=== PATIENT | female | born 1960 | race Two or more races ===

== ENCOUNTER 2016-10-01 09:45 | Emergency (ER) | payer BC ==
--- NOTE | 2016-10-01 10:20 | EDPHY ---
H & P Stated Complaint: Lightheaded and fatigue x2 mo.'s, rt calf "achey" Time Seen by Provider: 10/01/16 10:00 HPI/ROS: Chief Complaint: Fatigue HPI: 48-year-old woman who is been having increasing fatigue for the last 2 months. Patient states that she is sleeping well overnight and then during the course today's feeling very tired again. States it feels similar to prior to her diagnosis of hypothyroidism. She did call her auto rental clerk who told her to follow up with primary care physician. She called her primary care physician , Dr. han and was instructed to come to the emergency department for further evaluation. She has been exercising walking daily. She has not had any chest pain or shortness of breath. No nausea or vomiting. No fevers or chills. No urinary frequency urgency. No lightheadedness. She has lost about 50 lb over the course of the last year intentionally and as a result has been taken off of metformin. No increased thirst or urination. No heat or cold intolerance. ROS: 10 point Review of Systems is negative except as noted in the HPI. PMH: Hypothyroidism, type 2 diabetes, hypertension, hyperlipidemia, asthma, sleep apnea Medications: Synthroid, statin, singular, losartan Allergies: No known drug allergies Social History: No smoking, occasional alcohol, no recreational drug use Family History: non-contributory Physical Exam: Gen: Awake, Alert, No Distress HEENT: Nose: no rhinorrhea Eyes: PERRLA, EOMI Mouth: Moist mucosa Neck: Supple, no JVD Chest: nontender, lungs clear to auscultation Heart: S1, S2 normal, no murmur Abd: Soft, non-tender, no guarding Back: no CVA tenderness, no midline tenderness Ext: no edema, non-tender Skin: no rash Neuro: CN II-XII intact, Sensation grossly intact, Strength 5/5 in bilateral upper and lower extremities - Medical/Surgical History Hx Asthma: Yes Hx Chronic Respiratory Disease: No Hx Diabetes: Yes Hx Cardiac Disease: No Hx Renal Disease: No Hx Cirrhosis: No Hx Alcoholism: No Hx HIV/AIDS: No Hx Splenectomy or Spleen Trauma: No Other PMH: Med hx-thyroid,asthma-exercise induced,sleep apnea,type 2 diabetes, cholesterol,endometriosis,IBS. Surg-2 c-sect,laporoscopy - Social History Smoking Status: Never smoked Constitutional: Initial Vital Signs Temperature (C) 36.8 C 10/01/16 09:53 Heart Rate 95 10/01/16 09:53 Respiratory Rate 16 10/01/16 09:53 Blood Pressure 154/99 H 10/01/16 09:53 O2 Sat (%) 97 10/01/16 09:53 O2 Delivery Mode Room Air Allergies/Adverse Reactions: Penicillins Allergy (Verified 10/01/16 09:49) Home Medications: Medication Instructions Recorded Atorvastatin Calcium 10/01/16 Cinnamon 10/01/16 Evening [place] 10/01/16 Fish Oil 10/01/16 Flonase Nasal [place] 10/01/16 Levothyroxine 10/01/16 Losartan Potassium 10/01/16 Magnesium 10/01/16 Nitrofurantoin Monohyd/M-Cryst 100 mg PO BID #10 capsule 10/01/16 [Macrobid 100 mg Capsule] Singulair 10/01/16 VITAMIN D 10/01/16 Medical Decision Making - Diagnostics EKG Interpretation: ECG time 10:30 a.m. sinus rhythm with a rate of 94, normal axis, normal intervals, no acute ST or T-wave changes. Impression normal ECG ED Course/Re-evaluation: Chemistry is largely normal stool waiting TSH. CBC is normal. ECG is negative. Urinalysis is equivocal for UTI but she certainly has some back to urea and leuk [place] but no significant white cells. Given her symptomatology and her bacteriuria will treat her with antibiotics. - Data Points Laboratory Results: Laboratory Results 10/01/16 11:00 10/01/16 11:00 10/01/16 10/01/16 10/01/16 11:00 11:00 10:25 WBC 7.27 10^3/uL 10^3/uL (3.80-9.50) RBC 5.19 10^6/uL 10^6/uL (4.18-5.33) Hgb 15.2 g/dL g/dL (12.6-16.3) Hct 43.5 % % (38.0-47.0) MCV 83.8 fL fL (81.5-99.8) MCH 29.3 pg pg (27.9-34.1) MCHC 34.9 g/dL g/dL (32.4-36.7) RDW 12.8 % % (11.5-15.2) Plt Count 300 10^3/uL 10^3/uL (150-400) MPV 9.3 fL fL (8.7-11.7) Neut % (Auto) 57.9 % % (39.3-74.2) Lymph % (Auto) 32.2 % % (15.0-45.0) [place] % (Auto) 5.9 % % (4.5-13.0) Eos % (Auto) 2.9 % % (0.6-7.6) Baso % (Auto) 0.8 % % (0.3-1.7) Nucleat RBC Rel Count 0.0 % % (0.0-0.2) Absolute Neuts (auto) 4.21 10^3/uL 10^3/uL (1.70-6.50) Absolute Lymphs (auto) 2.34 10^3/uL 10^3/uL (1.00-3.00) Absolute Monos (auto) 0.43 10^3/uL 10^3/uL (0.30-0.80) Absolute Eos (auto) 0.21 10^3/uL 10^3/uL (0.03-0.40) Absolute Basos (auto) 0.06 10^3/uL 10^3/uL (0.02-0.10) Absolute Nucleated RBC 0.00 10^3/uL 10^3/uL (0-0.01) Immature Gran % 0.3 % % (0.0-1.1) Immature Gran # 0.02 10^3/uL 10^3/uL (0.00-0.10) Sodium 140 mEq/L mEq/L (134-144) Potassium 4.1 mEq/L mEq/L (3.5-5.2) Chloride 103 mEq/L mEq/L (97-110) Carbon Dioxide 22 mEq/l mEq/l (22-31) Anion Gap 15 mEq/L mEq/L (8-16) BUN 9 mg/dL mg/dL (7-23) Creatinine 0.6 mg/dL mg/dL (0.6-1.0) Estimated GFR > 60 Glucose 149 mg/dL H mg/dL (70-100) Calcium 9.5 mg/dL mg/dL (8.5-10.4) Total Bilirubin 0.9 mg/dL mg/dL (0.1-1.4) Conjugated Bilirubin 0.3 mg/dL mg/dL (0.0-0.5) Unconjugated Bilirubin 0.6 mg/dL mg/dL (0.0-1.1) AST 23 IU/L IU/L (14-46) ALT 21 IU/L IU/L (9-52) Alkaline Phosphatase 77 IU/L IU/L (38-126) Total Protein 7.8 g/dL g/dL (6.3-8.2) Albumin 4.2 g/dL g/dL (3.5-5.0) Lipase 131.0 IU/L IU/L (23-300) TSH Pending Free T4 Pending Thyroxine (T4) Pending Urine Color YELLOW Urine Appearance CLEAR Urine pH 7.0 (5.0-7.5) Ur Specific [place] 1.010 (1.002-1.030) Urine Protein NEGATIVE (NEGATIVE) Urine Ketones 1+ H (NEGATIVE) Urine Blood NEGATIVE (NEGATIVE) Urine Nitrate NEGATIVE (NEGATIVE) Urine Bilirubin NEGATIVE (NEGATIVE) Urine Urobilinogen 0.2 EU EU (0.2-1.0) Ur Leukocyte Esterase 1+ H (NEGATIVE) Urine RBC 0-1 /hpf /hpf (0-3) Urine WBC 1-3 /hpf /hpf (0-3) Ur Epithelial Cells TRACE /lpf /lpf (NONE-1+) Urine Bacteria 2+ /hpf H /hpf (NONE SEEN) Urine Glucose NEGATIVE (NEGATIVE) Departure - Departure Disposition: Home, Routine, Self-Care Clinical Impression: UTI (urinary tract infection) Condition: Good Instructions: Urinary Tract Infection in Women (ED) Additional Instructions: Please take her full course of antibiotics. Follow up with your primary care physician in 3 for 4 days. Referrals: Annabella Montes De Oca DO [Primary Care Provider] - As per Instructions Prescriptions: Nitrofurantoin Monohyd/M-Cryst [Macrobid 100 mg Capsule] 100 mg PO BID #10 capsule
--- NOTE | 2016-10-01 10:32 | CPEKG ---
Heart Rate: 94 RR Interval: 638 P-R Interval: 148 QRSD Interval: 86 QT Interval: 376 QTC Interval: 471 P [place]: 32 QRS [place]: 28 T Wave [place]: -1 EKG Severity - BORDERLINE ECG - EKG Impression: SINUS RHYTHM EKG Impression: BORDERLINE T ABNORMALITIES, ANT-LAT LEADS Electronically Signed By: Maximo Simpson 02-Oct-2016 08:03:36
[2016-10-01 10:34] LABS: COLOR YELLOW; LEUKOCYTE ESTERASE,URINE 1+ (NEGATIVE); NITRITE,URINE NEGATIVE (NEGATIVE)
[2016-10-01 10:48] LABS: RBC,URINE 0-1 /hpf (0-3)
[2016-10-01 10:49] LABS: BACTERIA 2+ /hpf (NONE SEEN)
[2016-10-01 11:09] LABS: % IMMATURE GRANULYOCYTES 0.3 % (0.0-1.1); ABSOLUTE IMMATURE GRANULOCYTES 0.02 10^3/uL (0.00-0.10); ADD DIFF? NO; ADD MORPH? NO; ADD SCAN? NO; ATYPICAL LYMPHOCYTE FLAG 10 (0-99); FRAGMENT RBC FLAG 0 (0-99); HEMATOCRIT 43.5 % (38.0-47.0); HEMOGLOBIN 15.2 g/dL (12.6-16.3); LEFT SHIFT FLG 0 (0-99); LIPEMIA HEMOLYSIS FLAG 90 (0-99); MEAN CELL HEMOGLOBIN 29.3 pg (27.9-34.1); MEAN CELL HEMOGLOBIN CONCENTR. 34.9 g/dL (32.4-36.7); MEAN CELL VOLUME 83.8 fL (81.5-99.8); MEAN PLATELET VOLUME 9.3 fL (8.7-11.7); PLATELET CLUMPS FLAG 10 (0-99); PLATELET COUNT 300 10^3/uL (150-400); RED BLOOD CELL COUNT 5.19 10^6/uL (4.18-5.33); RED CELL DISTRIBUTION WIDTH 12.8 % (11.5-15.2)
[2016-10-01 11:23] LABS: ALANINE AMINOTRANSFERASE 21 IU/L (9-52); ALBUMIN 4.2 g/dL (3.5-5.0); ALKALINE PHOSPHATASE 77 IU/L (38-126); ANION GAP 15 mEq/L (8-16); ASPARTATE AMINOTRANSFERASE 23 IU/L (14-46); BILIRUBIN,TOTAL 0.9 mg/dL (0.1-1.4); BILIRUBIN-CONJUGATED 0.3 mg/dL (0.0-0.5); BILIRUBIN-UNCONJUGATED 0.6 mg/dL (0.0-1.1); CALCIUM 9.5 mg/dL (8.5-10.4); CARBON DIOXIDE 22 mEq/l (22-31); CHLORIDE 103 mEq/L (97-110); CREATININE 0.6 mg/dL (0.6-1.0); GLOMERULAR FILTRATION RATE > 60; GLUCOSE 149 mg/dL (70-100); POTASSIUM 4.1 mEq/L (3.5-5.2); SODIUM 140 mEq/L (134-144); TOTAL PROTEIN 7.8 g/dL (6.3-8.2)
[2016-10-01 12:31] VITALS: BP 147/75; RESP 18
[2016-10-01 12:32] VITALS: PULSE 61; TEMP 98; O2SAT 95
--- NOTE | 2016-10-05 13:21 | CPEKG ---
Heart Rate: 90 RR Interval: 667 P-R Interval: 152 QRSD Interval: 88 QT Interval: 380 QTC Interval: 465 P [place]: 34 QRS [place]: 25 T Wave [place]: 22 EKG Severity - ABNORMAL ECG - EKG Impression: SINUS RHYTHM EKG Impression: MULTIPLE VENTRICULAR PREMATURE COMPLEXES EKG Impression: BORDERLINE T WAVE ABNORMALITIES Electronically Signed By: Ernie Kay 08-Oct-2016 08:59:37
== END 2016-10-01 12:35 | disposition home or self-care (01) ==
LOC: CED 09:45
DX: N39.0 Urinary tract infection, site not specified (principal); B96.89 Other specified bacterial agents as the cause of diseases classified elsewhere; E11.9 Type 2 diabetes mellitus without complications; I10 Essential (primary) hypertension; J45.909 Unspecified asthma, uncomplicated
CPT/HCPCS: 80048-PO; 80076-PO; 81003-PO; 81015-PO; 83690-PO; 84439-PO; 84443-PO; 85025-PO

== ENCOUNTER → 2016-12-31 | Outpatient (CLI) | payer BC | LOC: CIMAGING 07:59 | PROVIDERS: ATTEND Family Medicine | DX: Z12.31 Encounter for screening mammogram for malignant neoplasm of breast (principal) | CPT/HCPCS: G0202 ==

== ENCOUNTER → 2017-08-31 | Outpatient (CLI) | payer BC | LOC: FIMAGING 18:30 | PROVIDERS: ATTEND Psychiatry & Neurology Neurology | DX: M48.061 Spinal stenosis, lumbar region without neurogenic claudication (principal); M48.02 Spinal stenosis, cervical region; M50.323 Other cervical disc degeneration at C6-C7 level; M51.26 Other intervertebral disc displacement, lumbar region; M51.27 Other intervertebral disc displacement, lumbosacral region; G95.29 Other cord compression; Q76.49 Other congenital malformations of spine, not associated with scoliosis ==

== ENCOUNTER → 2018-01-04 | Outpatient (CLI) | payer BC | LOC: CIMAGING 09:51 | PROVIDERS: ATTEND Family Medicine | DX: Z12.31 Encounter for screening mammogram for malignant neoplasm of breast (principal) ==